=== PATIENT | female | born 1985 | race Caucasian/White ===

== ENCOUNTER 2019-01-19 06:15 | Day surgery (SDC) | payer OTHER ==
[~2019-01-19] VITALS: Ht 157.5 cm; Wt 68.5 kg
[~2019-01-19 06:15] MED LIST: BUSP5TAB20 PO; LEVO500 PO; MONT10TA21 PO; PRED10 PO; SODIUM CHLORIDE 0.9% 1,000 ML IV ONE
[2019-01-19] MEDS ORDERED: SODIUM CHLORIDE 0.9% 1,000 ML IV ONE (06:30)
[2019-01-19] MEDS ORDERED: MIDAZOLAM HCL 2 MG/2 ML VIAL ONE (06:43)
[2019-01-19] MEDS ORDERED: FentaNYL CITRATE-PF 100 MCG/2 ML VIAL ONE (06:43)
[2019-01-19] MEDS ORDERED: MethylPREDNISolone SOD SUCC 125 MG/2 ML VIAL IVP ONE (09:30)
[2019-01-19] MEDS ORDERED: MethylPREDNISolone SOD SUCC 125 MG/2 ML VIAL ONE (09:32)
[2019-01-19] MEDS ORDERED: LIDOCAINE 4% 50 ML SOLUTION ONE (17:23)
[2019-01-19] MEDS ORDERED: BENZOCAINE 20% 50 MCG/SPRAY 57 GM ONE (17:23)
[2019-01-19] MEDS ORDERED: ALBUTEROL SULFATE 2.5 MG/0.5 ML NEB SOLUTION NEB ONE (17:23)
[2019-01-19] MEDS ORDERED: LIDOCAINE 2% 30 ML JELLY ONE ×2 (17:23)
[2019-01-19] MEDS ORDERED: OXYGEN THERAPY IH SCH (20:00)
== END 2019-01-19 11:00 | disposition home or self-care (01) ==
LOC: SURGERY 06:15
PROVIDERS: ATTEND Internal Medicine Critical Care Medicine
DX: R05 Cough (principal); J84.9 Interstitial pulmonary disease, unspecified; J34.89 Other specified disorders of nose and nasal sinuses; B37.0 Candidal stomatitis; J38.4 Edema of larynx; J98.8 Other specified respiratory disorders; J45.909 Unspecified asthma, uncomplicated; K21.9 Gastro-esophageal reflux disease without esophagitis; F17.290 Nicotine dependence, other tobacco product, uncomplicated; Z79.899 Other long term (current) drug therapy
CPT/HCPCS: 31623; 31624; 71045; 84703; 87015; 87070; 87101; 87205; 87206; 87220; 88184; 88185; J2250; J2930; J3010; J7030; 88108; 88312